=== PATIENT | female | born 1950 | race Caucasian/White ===

== ENCOUNTER → 2022-09-04 | Outpatient (CLI) | payer MEDICARE, BC | END | disposition home or self-care (01) | LOC: Rad HDHVI 14:50 | PROVIDERS: ATTEND Internal Medicine Cardiovascular Disease | DX: I10 Essential (primary) hypertension (principal) | CPT/HCPCS: 93880 ==

== ENCOUNTER → 2022-09-05 | Outpatient (CLI) | payer MEDICARE, BC | END | disposition home or self-care (01) | LOC: Rad HDHVI 08:38 | PROVIDERS: ATTEND Internal Medicine Cardiovascular Disease | DX: I35.1 Nonrheumatic aortic (valve) insufficiency (principal); I10 Essential (primary) hypertension | CPT/HCPCS: 93306 ==

== ENCOUNTER → 2022-09-11 | Outpatient (CLI) | payer MEDICARE, BC ==
[~2022-09-11] VITALS: Ht 160 cm; Wt 106.1 kg
== END | disposition home or self-care (01) ==
LOC: Rad HDHVI 08:00
PROVIDERS: ATTEND Internal Medicine Cardiovascular Disease
DX: I10 Essential (primary) hypertension (principal); E78.5 Hyperlipidemia, unspecified; E78.00 Pure hypercholesterolemia, unspecified; Z82.49 Family history of ischemic heart disease and other diseases of the circulatory system
CPT/HCPCS: 78452; 93017; 96374; A9500

== ENCOUNTER → 2024-08-05 | Outpatient (CLI) | payer BC, MEDICARE, OTHER ==
[~2024-08-05] VITALS: Ht 157.5 cm; Wt 95.3 kg
[~2024-08-05] MED LIST: ADENOSINE 80 MG in GIVE UN-DILUTED 0 ML IV ONE; ADENOSINE 90 MG/30 ML INJ IV ONE; cloNIDine HCL 0.1 MG TAB ONE
== END | disposition home or self-care (01) ==
LOC: Rad HDHVI 09:34
PROVIDERS: ATTEND Internal Medicine Cardiovascular Disease
DX: I11.0 Hypertensive heart disease with heart failure (principal); I50.33 Acute on chronic diastolic (congestive) heart failure; E78.00 Pure hypercholesterolemia, unspecified
CPT/HCPCS: 78452; 93005; 96374; 96375; A9500; J0153

== ENCOUNTER 2025-05-27 23:50 | Inpatient (IN) | payer BC, OTHER ==
[~2025-05-27] VITALS: Ht 157.5 cm; Wt 101.9 kg
--- NOTE | 2025-05-28 00:06 | ED.PDOC ---
General HPI Comments 74 year old female presents to the ED with a chief complaint of LT flank pain onset 2 hours ago. Patient states she began experiencing LT flank pain 2 hours ago as well as nausea, vomiting. Patient experienced similar pain in the past when she had kidney stones. Denies dysuria, hematuria, fevers, chills, diarrhea, constipation, dizziness, headache. No other symptoms or modifying factors present at this time. Chief Complaint: Flank Pain Time Seen by MD: 00:02 Reviewed notes: Medications, Allergies Allergies: Coded Allergies: No Known Drug Allergy (Verified Allergy, Unknown, 09/11/22) Information Source: Patient Mode of Arrival: Ambulatory Severity: Moderate Timing: Hours Duration: Since onset Prehospital treatment: None Onset: Spontaneous Symptoms: Other History of: Kidney stone Location: (R) Flank Modifying factors: None associated signs and symptoms: Nausea, Vomiting, Flank Pain Past Medical History PAST MEDICAL HISTORY: Kidney Stones AUTOMOBILE TECHNICIAN History: No Pertinent AUTOMOBILE TECHNICIAN History Family History Family History: Reviewed,noncontributory to illness, No family hx of Cancer, No family hx of DM, No family hx of Heart shabana, No family hx of HTN, No family hx ofKidney shabana, No family hx of Liver shabana, No family hx of Lung shabana, No family hx of Stroke Social History Smoker: Non-Smoker Alcohol: Denies ETOH Use Drugs: Denies Drug Use Lives In: Home Constitutional: denies: chills, diaphoresis, fatigue, fever, malaise, sweats, weakness, others EENTM: denies: blurred vision, double vision, ear bleeding, ear discharge, ear drainage, ear pain, ear ringing, eye pain, eye redness, hearing loss, mouth pain, mouth swelling, nasal discharge, nose bleeding, nose congestion, nose pain, photophobia, tearing, throat pain, throat swelling, voice changes, others Respiratory: denies: cough, hemoptysis, orthopnea, SOB at rest, shortness of breath, SOB with excertion, stridor, wheezing, others Cardiovascular: denies: chest pain, dizzy spells, diaphoresis, Dyspnea on exertion, edema, irregular heart beat, left arm pain, lightheadedness, palpitations, PND, syncope, others Gastrointestinal: reports: nausea, vomiting; denies: abdomen distended, abdominal pain, blood streaked bowels, constipated, diarrhea, dysphagia, difficulty swallowing, hematemesis, melena, poor appetite, poor fluid intake, rectal bleeding, rectal pain, others Genitourinary: reports: flank pain (LT); denies: abnormal vagina bleeding, burning, dyspareunia, dysuria, frequency, hematuria, incontinence, pain, , vagina discharge, urgency, others Neurological: denies: dizziness, fainting, headache, left sided numbness, left sided weakness, numbness, paresthesia, pre-existing deficit, right sided numbness, right sided weakness, seizure, speech problems, tingling, tremors, weakness, others Musculoskeletal: denies: back pain, gout, joint pain, joint swelling, muscle pain, muscle stiffness, neck pain, others Integumetry: denies: bruises, change in color, change in hair/nails, dryness, laceration, lesions, lumps, rash, wounds, others Allergic/Immunocompromised: denies: Difficulty Healing, Frequent Infections, Hives, Itching, others Hematologic/Lymphatic: denies: anemia, blood clots, easy bleeding, easy bruising, swollen glands, others Endocrine: denies: excessive hunger, excessive sweating, excessive thirst, excessive urination, flushing, intolerance to cold, intolerance to heat, unexplained weight gain, unexplained weight loss, others Psychiatric: denies: anxiety, bipolar disorder, depression, hopeless, panic disorder, schizophrenia, sleepless, suicidal, others All Other Systems: Reviewed and Negative Physical Exam General Appearance: Normal, Other (appears uncomfortable) HEENT: Normal ENT Inspection, Pharynx Normal, TMs Normal Neck: Full Range of Motion, Non-Tender, Normal, Normal Inspection Respiratory: Chest Non-Tender, Lungs Clear, No Accessory Muscle Use, No Respiratory Distress, Normal Breath Sounds Cardiovascular: No Edema, No JVD, No Murmur, No Gallop, Normal Peripheral Pulses, Regular Rate/Rhythm Breast Exam: Deferred Gastrointestinal: No Organomegaly, Other (actively vomiting) Genitalia: Deferred Pelvic: Deferred Rectal: Deferred Extremities: No calf tenderness, Normal capillary refill, Normal inspection, Normal range of motion, Non-tender, No pedal edema Musculoskeletal : Apperance: Normal Neurologic: Alert, finance insurance manager II-XII nml as Tested, No Motor Deficits, Normal Affect, Normal Mood, No Sensory Deficits Cerebellar Function: Normal Reflexes: Normal Skin: Dry, Normal Color, Warm Lymphatic: No Adenopathy Was a procedure done? Was a procedure done?: No Differential Diagnosis Kidney stone (Female): Musculoskeletal pain, Renal failure, Urinary obstruction, Urolithiasis Kidney stone (Male): N/A Penile/Scrotal: N/A Urinary Problem (Male): N/A Urinary Problem (Female): N/A X-Ray, Labs, Meds, VS Vital Signs Date Time Temp Pulse Resp B/P (MAP) Pulse Ox O2 Delivery O2 Flow Rate FiO2 05/28/25 01:00 98.0 66 14 125/71 (89) 97 98.0 05/28/25 00:53 Room Air* 0 21 05/28/25 00:53 97.6 70 20 134/73 (93) 97 97.6 05/28/25 00:50 66 14 125/71 05/28/25 00:23 70 20 134/73 05/28/25 00:01 97.6 70 20 134/73 (93) 97 97.6 Lab Test 05/28/25 02:15 05/28/25 00:11 Range/Units Urine Color Light-yellow Yellow Urine Clarity Clear Clear Urine pH 5.5 5.0-9.0 Urine Specific [place] 1.016 1.001-1.035 Urine Protein Negative Negative Urine Ketones Negative Negative Urine Blood Trace H Negative /uL Urine Nitrite Negative Negative Urine Bilirubin Negative Negative Urine Urobilinogen Normal Negative mg/dL Urine Leukocyte Esterase Negative Negative /uL Urine RBC 3 0 - 4 /hpf Urine Microscopic WBC 3 0-5 /HPF Urine Squamous Epithelial Cells Few <5 /hpf Urine Bacteria None seen None Seen /hpf Urine Granular Casts Few 0 /lpf Urine Glucose Normal Normal mg/dL White Blood Count 13.1 H 4.4-10.8 10^3/uL Red Blood Count 5.33 H 4.0-5.20 10^6/uL Hemoglobin 15.6 12.2-16.2 g/dL Hematocrit 46.4 H 36.0-46.0 % Mean Corpuscular Volume 87.0 80.0-100.0 fL Mean Corpuscular Hemoglobin 29.2 28.0-32.0 pg Mean Corpuscular Hemoglobin Concent 33.6 32.0-36.0 g/dL Red Cell Distribution Width 15.0 H 11.8-14.3 % Platelet Count 249 140-450 10^3/uL Mean Platelet Volume 9.0 6.9-10.8 fL Neutrophils (%) (Auto) 65.3 37.0-80.0 % Lymphocytes (%) (Auto) 24.5 10.0-50.0 % Monocytes (%) (Auto) 8.2 0.0-12.0 % Eosinophils (%) (Auto) 1.1 0.0-7.0 % Basophils (%) (Auto) 0.9 0.0-2.0 % Neutrophils # (Auto) 8.5 1.6-8.6 10 ^3/uL Lymphocytes # (Auto) 3.2 0.4-5.4 10 ^3/uL Monocytes # (Auto) 1.1 0-1.3 10 ^3/uL Eosinophils # (Auto) 0.2 0-0.8 10 ^3/uL Basophils # (Auto) 0.1 0-0.2 10 ^3/uL Nucleated Red Blood Cells 0.1 % Sodium Level 143 136-145 mmol/L Potassium Level 3.6 3.5-5.1 mmol/L Chloride Level 110 H 98-107 mmol/L Carbon Dioxide Level 22 20-31 mmol/L Anion Gap 11 5-15 Blood Urea Nitrogen 25 H 9-23 mg/dL Creatinine 1.29 H 0.550-1.02 mg/dL Glomerular Filtration Rate Calc 44 >90 mL/min BUN/Creatinine Ratio 19.4 10.0-20.0 Serum Glucose 150 H 74-106 mg/dL Calcium Level 9.8 8.7-10.4 mg/dL Current Medications Medications (Trade) Dose Ordered Sig/Malia Route Start Time Stop Time Status Last Admin Sodium Chloride 1,000 ml @ 1,000 mls/hr Q1H ONCE IV 05/28/25 00:15 05/28/25 01:14 DC 05/28/25 00:29 Ondansetron HCl (Zofran) 4 mg ONCE ONCE IV 05/28/25 00:15 05/28/25 00:16 DC 05/28/25 00:24 Ketorolac Tromethamine (Toradol Injection) 15 mg ONCE ONCE IV 05/28/25 00:15 05/28/25 00:16 DC 05/28/25 00:24 Morphine Sulfate 4 mg ONCE ONCE IV 05/28/25 00:15 05/28/25 00:16 SD 05/28/25 00:23 Tamsulosin HCl (Flomax) 0.4 mg ONCE ONCE PO 05/28/25 00:15 05/28/25 00:16 SD 05/28/25 00:24 Time of 1ST Reevaluation: 00:32 Reevaluation 1ST: Unchanged Patient Education/Counseling: Diagnosis, Treatment Family Education/Counseling: No Family Present SEPSIS Sepsis Screen Physician Orders Ct Ab Pel Wo Con-No Oral Or Iv (05/28/25 00:02) Vital Signs Date Time Temp Pulse Resp B/P (MAP) Pulse Ox O2 Delivery O2 Flow Rate FiO2 05/28/25 01:00 98.0 66 14 125/71 (89) 97 98.0 05/28/25 00:53 Room Air* 0 21 05/28/25 00:53 97.6 70 20 134/73 (93) 97 97.6 05/28/25 00:50 66 14 125/71 05/28/25 00:23 70 20 134/73 05/28/25 00:01 97.6 70 20 134/73 (93) 97 97.6 Laboratory Tests Test 05/28/25 00:11 White Blood Count 13.1 10^3/uL (4.4-10.8) H Medications Medications Dose Ordered Sig/Malia Route Start Time Stop Time Status Last Admin Dose Admin Ketorolac Tromethamine 15 mg ONCE ONCE IV 05/28/25 00:15 05/28/25 00:16 SD 05/28/25 00:24 Morphine Sulfate 4 mg ONCE ONCE IV 05/28/25 00:15 05/28/25 00:16 SD 05/28/25 00:23 Ondansetron HCl 4 mg ONCE ONCE IV 05/28/25 00:15 05/28/25 00:16 SD 05/28/25 00:24 Sodium Chloride 1,000 ml @ 1,000 mls/hr Q1H ONCE IV 05/28/25 00:15 05/28/25 01:14 SD 05/28/25 00:29 Tamsulosin HCl 0.4 mg ONCE ONCE PO 05/28/25 00:15 05/28/25 00:16 SD 05/28/25 00:24 Departure 1 Departure Time of Disposition: 02:59 (Patient presented with abdominal pain that was concerning for possible appendicits, gastritis, cholecystitis, colitis, gastroenteritis, sbo, or orther possible surgical emergency. Data: 1. I ordered and reviewed the result of at least 3 labs including a CBC, BMP, and Urinalysis. 2. I independently interpreted the following tests: CT Abdoment and Pelvis is concerning for obstructive uropathy secondary to renal stone .Risk:This patient has a high risk of morbidity due to further diagnostic testing or treatment and may suffer from an acute abdominal process disorder. Workup reveals obstructive uropathy secondary to ureteral colic and patient should be admitted for further workup. and possible expert consultation. ) Impression: Primary Impression: Hydronephrosis of left kidney Additional Impressions: Ureteral colic Left flank pain Disposition: ADMITTED INPATIENT Admit to: Med Surg Condition: Serious Critical Care Note Critical Care Time?: Yes Critical care comment: Intractable abdominal pain Authorized and Performed by: Robinson Mcnulty MD Total critical care time: Approximately 42 minutes Due to a high probability of clinically significant, life threatening deterioration, the patient required my highest level of preparedness to intervene emergently and I personally spent this critical care time directly and personally managing the patient. This critical care time included obtaining a history; examining the patient; pulse oximetry; ordering and review of studies; arranging urgent treatment with development of a management plan; evaluation of patient's response to treatment; frequent reassessment; and, discussions with other providers. This critical care time was performed to assess and manage the high probability of imminent, life-threatening deterioration that could result in multi-organ failure. It was exclusive of separately billable procedures and treating other patients and teaching time. Please see my other sections and the rest of the note for further information on patient assessment and treatment. Stability Stability form required: No I personally scribed for ROBINSON MCNULTY MD ([email or web address]) on 05/28/25 at 00:06. Electronically submitted by Keara Echevarria ([email or web address]). ROBINSON MCNULTY MD May 28, 2025 00:06
[2025-05-28] MEDS: MORPHINE SULFATE 4 MG/ML SYR/VIAL IV ONE (00:23)
[2025-05-28 00:24] LABS: Hematocrit 46.4 % (36.0-46.0); Hemoglobin 15.6 g/dL (12.2-16.2); Mean Corpuscular Hemoglobin 29.2 pg (28.0-32.0); Mean Corpuscular Volume 87.0 fL (80.0-100.0); Nucleated Red Blood Cells % 0.1 %
[2025-05-28] MEDS: ONDANSETRON HCL 4 MG/2 ML VIAL IV ONE (00:24)
[2025-05-28] MEDS: TAMSULOSIN HYDROCHLORIDE 0.4 MG CAP PO ONE (00:24)
[2025-05-28] MEDS: KETOROLAC TROMETH 30 MG/ML 1ML VIAL IV ONE (00:24)
[2025-05-28] MEDS: SODIUM CHLORIDE 0.9% 1,000 ML IV ONE (00:29)
[2025-05-28 00:33] LABS: Potassium 3.6 mmol/L (3.5-5.1); Sodium 143 mmol/L (136-145)
[2025-05-28 00:34] LABS: Anion Gap 11 (5-15); Calcium 9.8 mg/dL (8.7-10.4); Carbon Dioxide 22 mmol/L (20-31)
[2025-05-28 00:39] LABS: BUN/Creatinine Ratio 19.4 (10.0-20.0)
[2025-05-28 00:40] LABS: Blood Urea Nitrogen 25 mg/dL (9-23); Chloride 110 mmol/L (98-107); Glucose 150 mg/dL (74-106)
--- NOTE | 2025-05-28 02:03 | DVH ---
CLINICAL HISTORY: right flank pain TECHNIQUE: CT of the abdomen and pelvis was performed without intravenous contrast. This exam was per formed according to our departmental dose optimization program. Up-to-date CT equipment and radiation dose reduction techniques are utilized as appropriate. CTDI: 20.47 DLP: 1251.87 WID: COMPARISON: None FINDINGS: Lower Thorax: Linear and ground-glass bibasilar opacities which could reflect atelectasis and/or scar ring. Mild cardiomegaly. Small hiatal hernia. Liver and Biliary system: Nodular contour of the liver. No definite hepatic lesion. The gallbladder i s normal caliber. There is no biliary ductal dilatation. Spleen: Unremarkable. Adrenal Glands and Kidneys: Normal adrenal glands. There is an obstructing 6.4 mm calculus in the lef t UPJ causing [id number] left hydronephrosis. Additional nonobstructing left lower pole renal calculus. No right hydronephrosis or nephrolithiasis. Pancreas and Retroperitoneum: Unremarkable. Aorta and Major Vessels: Aortoiliac vessels are normal in caliber with mild calcified atherosclerotic plaque. Bowel, Mesentery and Peritoneal space: Normal caliber small and large bowel. Normal appendix. Mild d istal colonic diverticulosis. No free air or fluid collection. Pelvis: Decompressed urinary bladder. Vaginal cuff is grossly unremarkable. There is no pelvic lympha denopathy. Abdominal wall and Osseous Structures: Small fat containing umbilical hernia. Multilevel lower thorac ic and lumbar spondylosis. There is no destructive osseous lesion. IMPRESSION: Obstructing 6.4 mm calculus in the left UPJ causing [id number] left hydronephrosis. Additional nonobstructing left lower pole renal calculus. Nodular contour of the liver which could be fibrosis or cirrhosis. Correlate with liver enzymes. Mild cardiomegaly. Small hiatal hernia. Mild distal colonic diverticulosis.
[2025-05-28 02:37] LABS: Urine Protein, UAD Negative (Negative)
[2025-05-28] MEDS ORDERED: ACETAMINOPHEN 325 MG TAB PO PRN (03:45)
--- NOTE | 2025-05-28 04:42 | DVHHP2 ---
History of Present Illness Reason for Visit: Flank pain History of Present Illness 74-year-old female presents for evaluation of flank pain. Patient reports a one day history of left-sided flank pain with associated nausea and vomiting. She does have a history of kidney stones. Denies dysuria or hematuria. No nausea or vomiting. Past Medical History Kidney stones Past Surgical History Denies Family History Noncontributory Smoke: No ALCOHOL: none Drugs: None Lives: with Family Review of Systems Review of Systems Review of systems are currently negative otherwise addressed in HPI. Allergies: Coded Allergies: No Known Drug Allergy (Verified Allergy, Unknown, 09/11/22) Medications Current Medications Medications Dose Ordered Sig/Malia Route Start Time Stop Time Status Last Admin Dose Admin Acetaminophen/ Hydrocodone Bitart 1 tab Q4HP PRN PO 05/28/25 03:45 Ondansetron HCl 4 mg Q4HP PRN IV 05/28/25 03:45 Acetaminophen 650 mg Q6HP PRN PO 05/28/25 03:45 Morphine Sulfate 2 mg Q6HPRN PRN IV 05/28/25 03:45 Exam Vital Signs Vital Signs Date Time Temp Pulse Resp B/P (MAP) Pulse Ox O2 Delivery O2 Flow Rate FiO2 05/28/25 03:25 Room Air* 0 21 05/28/25 03:09 98.3 67 15 139/54 (82) 96 98.3 Exam Gen: 74-year-old female in mild distress Skin: Warm, dry, normal color and texture, no rash. HEENT: Normocephalic atraumatic, mucous membranes moist and pink. Neck: Cervical and supraclavicular nodes normal without enlargement, trachea is midline, thyroid gland is normal without masses. Pulmonary: Clear to auscultation and percussion bilaterally. Cardiac: Regular rate and rhythm. No murmur Abdomen: Soft, left CVA tenderness, nondistended, bowel sounds present all 4 quadrants, no guarding, no rigidity, no organomegaly. Extremities: No cyanosis, clubbing, no edema Neuro: Cranial nerves II through XII grossly intact, normal affect and speech, no focal motor deficits. Labs/Xrays ORDERING PHYSICIAN: ROBINSON SOLOMON MD PROCEDURE(s): ABPL - CT AB PEL WO CON-NO ORAL OR IV REASON: right flank pain ORDER NUMBER(s): [id number], ACCESSION NUMBER(s): [id number] CLINICAL HISTORY: right flank pain TECHNIQUE: CT of the abdomen and pelvis was performed without intravenous contrast. This exam was performed according to our departmental dose optimization program. Up-to-date CT equipment and radiation dose reduction techniques are utilized as appropriate. CTDI: 20.47 DLP: 1251.87 WID: COMPARISON: None FINDINGS: Lower Thorax: Linear and ground-glass bibasilar opacities which could reflect atelectasis and/or scarring. Mild cardiomegaly. Small hiatal hernia. Liver and Biliary system: Nodular contour of the liver. No definite hepatic les ion. The gallbladder is normal caliber. There is no biliary ductal dilatation. Spleen: Unremarkable. Adrenal Glands and Kidneys: Normal adrenal glands. There is an obstructing 6.4 mm calculus in the left UPJ causing [id number] left hydronephrosis. Additional nonobstructing left lower pole renal calculus. No right hydronephrosis or nephrolithiasis. Pancreas and Retroperitoneum: Unremarkable. Aorta and Major Vessels: Aortoiliac vessels are normal in caliber with mild calcified atherosclerotic plaque. Bowel, Mesentery and Peritoneal space: Normal caliber small and large bowel. Normal appendix. Mild distal colonic diverticulosis. No free air or fluid collection. Pelvis: Decompressed urinary bladder. Vaginal cuff is grossly unremarkable. There is no pelvic lymphadenopathy. Abdominal wall and Osseous Structures: Small fat containing umbilical hernia. Multilevel lower thoracic and lumbar spondylosis. There is no destructive osseous lesion. IMPRESSION: Obstructing 6.4 mm calculus in the left UPJ causing [id number] left hydronephrosis. Additional nonobstructing left lower pole renal calculus. Nodular contour of the liver which could be fibrosis or cirrhosis. Correlate with liver enzymes. Mild cardiomegaly. Small hiatal hernia. Mild distal colonic diverticulosis. Labs Test 05/28/25 02:15 05/28/25 00:11 Range/Units Urine Color Light-yellow Yellow Urine Clarity Clear Clear Urine pH 5.5 5.0-9.0 Urine Specific [place] 1.016 1.001-1.035 Urine Protein Negative Negative Urine Ketones Negative Negative Urine Blood Trace H Negative /uL Urine Nitrite Negative Negative Urine Bilirubin Negative Negative Urine Urobilinogen Normal Negative mg/dL Urine Leukocyte Esterase Negative Negative /uL Urine RBC 3 0 - 4 /hpf Urine Microscopic WBC 3 0-5 /HPF Urine Squamous Epithelial Cells Few <5 /hpf Urine Bacteria None seen None Seen /hpf Urine Granular Casts Few 0 /lpf Urine Glucose Normal Normal mg/dL White Blood Count 13.1 H 4.4-10.8 10^3/uL Red Blood Count 5.33 H 4.0-5.20 10^6/uL Hemoglobin 15.6 12.2-16.2 g/dL Hematocrit 46.4 H 36.0-46.0 % Mean Corpuscular Volume 87.0 80.0-100.0 fL Mean Corpuscular Hemoglobin 29.2 28.0-32.0 pg Mean Corpuscular Hemoglobin Concent 33.6 32.0-36.0 g/dL Red Cell Distribution Width 15.0 H 11.8-14.3 % Platelet Count 249 140-450 10^3/uL Mean Platelet Volume 9.0 6.9-10.8 fL Neutrophils (%) (Auto) 65.3 37.0-80.0 % Lymphocytes (%) (Auto) 24.5 10.0-50.0 % Monocytes (%) (Auto) 8.2 0.0-12.0 % Eosinophils (%) (Auto) 1.1 0.0-7.0 % Basophils (%) (Auto) 0.9 0.0-2.0 % Neutrophils # (Auto) 8.5 1.6-8.6 10 ^3/uL Lymphocytes # (Auto) 3.2 0.4-5.4 10 ^3/uL Monocytes # (Auto) 1.1 0-1.3 10 ^3/uL Eosinophils # (Auto) 0.2 0-0.8 10 ^3/uL Basophils # (Auto) 0.1 0-0.2 10 ^3/uL Nucleated Red Blood Cells 0.1 % Sodium Level 143 136-145 mmol/L Potassium Level 3.6 3.5-5.1 mmol/L Chloride Level 110 H 98-107 mmol/L Carbon Dioxide Level 22 20-31 mmol/L Anion Gap 11 5-15 Blood Urea Nitrogen 25 H 9-23 mg/dL Creatinine 1.29 H 0.550-1.02 mg/dL Glomerular Filtration Rate Calc 44 >90 mL/min BUN/Creatinine Ratio 19.4 10.0-20.0 Serum Glucose 150 H 74-106 mg/dL Calcium Level 9.8 8.7-10.4 mg/dL Assessment/Plan Assessment/Plan Assessment Renal colic Left hydronephrosis Acute kidney injury Plan Admit the patient to [facility] to the hospitalist Urology consult Pain management Rocephin Continue treatment per orders. Plan discussed with: Patient My Orders Orders - KATINA VERA Procedure Category Date Status Time * Urology Consult CONS 05/28/25 Transmitted 03:37 Basic Metabolic Panel LAB 05/29/25 Verified 04:00 Admit ADMIT 05/28/25 Transmitted 03:37 Renal DIET 05/28/25 Transmitted Standard(2gna,3gk,Lopho) Breakfast Hydrocodone-Acet PHA 05/28/25 In Process 5/325mg Tab ([place] 03:45 Ondansetron Hcl PHA 05/28/25 In Process (Zofran) 03:45 Complete Blood Count LAB 05/29/25 Verified 04:00 Condition: Stable ALLEN 05/28/25 In Process 03:37 Acetaminophen Tablet PHA 05/28/25 In Process (Tylenol Tablet) 03:45 Bedrest With Bathroom ALLEN 05/28/25 In Process Privileg 03:37 Morphine Sulfate PHA 05/28/25 In Process Injection 03:45 Date of Service: May 28, 2025 Billing Provider: KATINA VERA Common Visit Codes: [id number] INP/OBS CARE (MOD) KATINA VERA May 28, 2025 04:42
[2025-05-28 07:43] VITALS: PULSE 67; RESP 15; O2SAT 97
[2025-05-28 08:17] VITALS: PULSE 80; RESP 18; O2SAT 96
--- NOTE | 2025-05-28 10:11 | DVHPNRES ---
Progress Note Date Seen: May 28, 2025 Resident Creating Document: ZAIDA MCCLAIN RESIDENT Medical Necessity Reason Pt with a Central, PICC or Fol: No Subjective Review of Systems 74-year-old female presents for evaluation of flank pain. She reports 1 day history of left-sided flank pain associated with nausea and vomiting. she has a history of kidney stones. She denies dysuria or hematuria. She denies any chest pain,shortness of breath, fever, chills or any other complaints at this time. Past medical history: kidney stone 5 yrs back Past surgical history: none Allergies: No known allergies Smoking: no Alcohol: Occasional Lives with family Review of systems: Patient was seen and examined at bedside. No new complaints were reported. Overnight events were reviewed. Patient reports: Feels better Objective vital signs Vital Sign Date Time Temp Pulse Resp B/P (MAP) Pulse Ox O2 Delivery O2 Flow Rate FiO2 05/28/25 08:00 64 05/28/25 07:43 15 97 Nasal Cannula* 2 28 05/28/25 07:30 97.9 126/44 (71) 97.9 Total Intake and Output 05/27/25 05/27/25 05/28/25 15:00 23:00 07:00 Intake Total 1000 ml Balance 1000 ml medications Current Medications Medications Dose Ordered Sig/Malia Route Start Time Stop Time Status Last Admin Dose Admin Acetaminophen/ Hydrocodone Bitart 1 tab Q4HP PRN PO 05/28/25 03:45 Ondansetron HCl 4 mg Q4HP PRN IV 05/28/25 03:45 Acetaminophen 650 mg Q6HP PRN PO 05/28/25 03:45 Morphine Sulfate 2 mg Q6HPRN PRN IV 05/28/25 03:45 Examination Pt is lying on bed General Appearance: Alert, Oriented X3, Cooperative, Mild distress HEENT: Atraumatic, Mucous membranes moist/pink Respiratory: Clear to auscultation, Normal air movement, No added sounds Cardiovascular: Regular rate, Normal S1, Normal S2, No murmurs Abdominal/ : Active bowel sounds, Soft, no distention, no tenderness Extremities: No edema, Normal pulses, No tenderness/swelling Skin: No Significant rash, except past surgical scars Neuro: Normal speech, sensorimotor deficits none Psych/Mental Status: Mental status NL, Mood NL laboratory and microbiology Laboratory Tests 05/28/25 00:11 Test 05/28/25 00:11 Range/Units Serum Glucose 150 H 74-106 mg/dL Labs and/or images reviewed: Labs reviewed by me, Image(s) reviewed by me Problem List/Assessment/Plan Problem List/Assessment/Plan Assessment and plan # Left nephrolithiasis with [id number] left hydronephrosis. # Acute obstructive uropathy # [id number] Left hydronephrosis # Acute kidney injury likely VMN or Obstructive uropathy CT abdomen and pelvis findings- Obstructing 6.4 mm calculus in the left UPJ causing gxmb-[id number] left hydronephrosis. Additional no obstructing left lower pole renal calculus Ceftriaxone IV fluid Ondansetron Morphine Tamsulosin Consult urology Ordered x-ray KUB, pending # Mild cardiomegaly -Her PCP Dr. Meyer was consulted. # Small hiatal hernia. -Pantoprazole # ? Liver cirrhosis # Mild distal colonic diverticulosis evident on CT abdomen and pelvis Out patient F/U with GI specialist GI prophylaxis: Pantoprazole DVT prophylaxis: Not indicated Diet: Renal Goals of care discussed with the patient for more than 27 minutes: Full code status Case discussed with Dr. Mcleod, patient and RN Plan discussed with: Patient Date of Service: May 28, 2025 Billing Provider: GOLDEN MCLEOD MD Common Visit Codes: [id number] INP/OBS CARE(HIGH) ZAIDA MCCLAIN RESIDENT May 28, 2025 10:11 GOLDEN MCLEOD MD May 29, 2025 07:51
--- NOTE | 2025-05-28 11:08 | DVHINCON2 ---
Date of service: May 28, 2025 Referring Physician hospitalist Reason for Consultation obstructive uropathy History of Present Illness History Source: Patient, RN Notes, MD Notes Exam Limitations: No limitations HPI 74-year-old female presents for evaluation of flank pain. Patient reports a one day history of left-sided flank pain with associated nausea and vomiting. She does have a history of kidney stones. Denies dysuria or hematuria. No nausea or vomiting. Home Meds No Active Prescriptions or Reported Meds Review of Systems Constitutional: No symptom reported Ears, Nose, & Throat: No symptom reported Eyes: No symptom reported Pulmonary/Respiratory: No symptom reported Cardiovascular: No symptom reported Gastrointestinal: No symptom reported Genitourinary: No symptom reported Musculoskeletal: No symptom reported Skin: No symptom reported Psychiatric: No symptom reported Endocrine: No symptom reported Hemotologic/Lymphatic: No symptom reported H&P Exam Vital Signs Vital Signs Date Time Temp Pulse Resp B/P (MAP) Pulse Ox O2 Delivery O2 Flow Rate FiO2 05/28/25 08:00 64 05/28/25 07:43 15 97 Nasal Cannula* 2 28 05/28/25 07:30 97.9 126/44 (71) 97.9 General Appeara: Well developed, Well nourished, Normal Appearance, Obese Neuro/Mental St: Alert, Oriented Appearance: Appropriate appearance, Appropriate insight Eye contact/ Speech: Cooperative, Good eye contact, Normal speech Skin Exam: Normal inspection, Normal color, Warm/dry Labs/Xrays [place] [address] Ph: [phone] DIAGNOSTIC IMAGING Diagnostic Imaging Report : [id number] Signed PATIENT: MICHELLE CAROLINA ACCT: [id number] UNIT: [id number] : 1950 LOC: ER ROOM / BED: / AGE / SEX: 74 / F ADM STATUS: REG ER SERVICE 0002 ORDERING PHYSICIAN: ROBINSON SOLOMON MD PROCEDURE(s): ABPL - CT AB PEL WO CON-NO ORAL OR IV REASON: right flank pain ORDER NUMBER(s): [id number], ACCESSION NUMBER(s): [id number] CLINICAL HISTORY: right flank pain TECHNIQUE: CT of the abdomen and pelvis was performed without intravenous contrast. This exam was performed according to our departmental dose optimization program. Up-to-date CT equipment and radiation dose reduction techniques are utilized as appropriate. CTDI: 20.47 DLP: 1251.87 WID: COMPARISON: None FINDINGS: Lower Thorax: Linear and ground-glass bibasilar opacities which could reflect atelectasis and/or scarring. Mild cardiomegaly. Small hiatal hernia. Liver and Biliary system: Nodular contour of the liver. No definite hepatic lesion. The gallbladder is normal caliber. There is no biliary ductal dilatation. Spleen: Unremarkable. Adrenal Glands and Kidneys: Normal adrenal glands. There is an obstructing 6.4 mm calculus in the left UPJ causing evky-ec-qsibemsj left hydronephrosis. Additional nonobstructing left lower pole renal calculus. No right hydronephrosi s or nephrolithiasis. Pancreas and Retroperitoneum: Unremarkable. Aorta and Major Vessels: Aortoiliac vessels are normal in caliber with mild calcified atherosclerotic plaque. Bowel, Mesentery and Peritoneal space: Normal caliber small and large bowel. Normal appendix. Mild distal colonic diverticulosis. No free air or fluid collection. Pelvis: Decompressed urinary bladder. Vaginal cuff is grossly unremarkable. There is no pelvic lymphadenopathy. Abdominal wall and Osseous Structures: Small fat containing umbilical hernia. Multilevel lower thoracic and lumbar spondylosis. There is no destructive osseous lesion. IMPRESSION: Obstructing 6.4 mm calculus in the left UPJ causing douh-lt-btdbslor left hydronephrosis. Additional nonobstructing left lower pole renal calculus. Nodular contour of the liver which could be fibrosis or cirrhosis. Correlate with liver enzymes. Mild cardiomegaly. Small hiatal hernia. Mild distal colonic diverticulosis. ATED BY: ALEXANDER CONCEPCION MD DICTATED DATE/TIME: 05/28/25199 SIGNED BY: ALEXANDER CONCEPCION MD SIGNED DATE/TIME: 05/28/25199 CC: Labs Test 05/28/25 02:15 05/28/25 00:11 Range/Units Urine Color Light-yellow Yellow Urine Clarity Clear Clear Urine pH 5.5 5.0-9.0 Urine Specific [place] 1.016 1.001-1.035 Urine Protein Negative Negative Urine Ketones Negative Negative Urine Blood Trace H Negative /uL Urine Nitrite Negative Negative Urine Bilirubin Negative Negative Urine Urobilinogen Normal Negative mg/dL Urine Leukocyte Esterase Negative Negative /uL Urine RBC 3 0 - 4 /hpf Urine Microscopic WBC 3 0-5 /HPF Urine Squamous Epithelial Cells Few <5 /hpf Urine Bacteria None seen None Seen /hpf Urine Granular Casts Few 0 /lpf Urine Glucose Normal Normal mg/dL White Blood Count 13.1 H 4.4-10.8 10^3/uL Red Blood Count 5.33 H 4.0-5.20 10^6/uL Hemoglobin 15.6 12.2-16.2 g/dL Hematocrit 46.4 H 36.0-46.0 % Mean Corpuscular Volume 87.0 80.0-100.0 fL Mean Corpuscular Hemoglobin 29.2 28.0-32.0 pg Mean Corpuscular Hemoglobin Concent 33.6 32.0-36.0 g/dL Red Cell Distribution Width 15.0 H 11.8-14.3 % Platelet Count 249 140-450 10^3/uL Mean Platelet Volume 9.0 6.9-10.8 fL Neutrophils (%) (Auto) 65.3 37.0-80.0 % Lymphocytes (%) (Auto) 24.5 10.0-50.0 % Monocytes (%) (Auto) 8.2 0.0-12.0 % Eosinophils (%) (Auto) 1.1 0.0-7.0 % Basophils (%) (Auto) 0.9 0.0-2.0 % Neutrophils # (Auto) 8.5 1.6-8.6 10 ^3/uL Lymphocytes # (Auto) 3.2 0.4-5.4 10 ^3/uL Monocytes # (Auto) 1.1 0-1.3 10 ^3/uL Eosinophils # (Auto) 0.2 0-0.8 10 ^3/uL Basophils # (Auto) 0.1 0-0.2 10 ^3/uL Nucleated Red Blood Cells 0.1 % Sodium Level 143 136-145 mmol/L Potassium Level 3.6 3.5-5.1 mmol/L Chloride Level 110 H 98-107 mmol/L Carbon Dioxide Level 22 20-31 mmol/L Anion Gap 11 5-15 Blood Urea Nitrogen 25 H 9-23 mg/dL Creatinine 1.29 H 0.550-1.02 mg/dL Glomerular Filtration Rate Calc 44 >90 mL/min BUN/Creatinine Ratio 19.4 10.0-20.0 Serum Glucose 150 H 74-106 mg/dL Calcium Level 9.8 8.7-10.4 mg/dL Assessment/Plan Problem List: (1) Ureteral colic (2) Left flank pain (3) Hydronephrosis of left kidney Plan 74 yo female with obstructive left proximal stone and moderate hydro, mildly elevated white count NPO after midnight consent for cysto and left ureteral stent placement tomorrow Plan discussed with: Patient CHANTEL CROCKETT ACCOUNTANT AUDITOR May 28, 2025 11:08
[2025-05-28] MEDS: PANTOPRAZOLE 40 MG TAB PO SCH (11:37)
[2025-05-28] MEDS: cefTRIAXone 1GM/50ML D5W 50 ML IV ONE (11:37)
[2025-05-28] MEDS: SODIUM CHLORIDE 0.9% 500 ML IV ONE (11:46)
[2025-05-28 11:51] LABS: INR 1.02 (0.9-1.15); Partial Thromboplastin Time 25.9 SEC (24.5-34.5); Prothrombin Time 10.8 sec (9.3-11.8)
--- NOTE | 2025-05-28 12:44 | DVHPN2 ---
Progress Note - Dictate Date Seen: May 27, 2025 Medical Necessity Reason Pt with a Central, PICC or Fol: No Subjective FLANK PAIN DYSURIA NOW WITH RECURRENT NEPROLITHIASIS Obstructing 6.4 mm calculus in the left UPJ causing lowa-bz-pcwuapqc left hydronephrosis. Additional nonobstructing left lower pole renal calculus. Nodular contour of the liver which could be fibrosis or cirrhosis. Correlate with liver enzymes. Mild cardiomegaly. Small hiatal hernia. Mild distal colonic diverticulosis. vital signs Vital Sign Date Time Temp Pulse Resp B/P (MAP) Pulse Ox O2 Delivery O2 Flow Rate FiO2 05/28/25 11:30 57 20 120/39 (66) 95 05/28/25 07:43 Nasal Cannula* 2 28 05/28/25 07:30 97.9 97.9 Total Intake and Output 05/27/25 05/27/25 05/28/25 15:00 23:00 07:00 Intake Total 1000 ml Balance 1000 ml medications Current Medications Medications Dose Ordered Sig/Malia Route Start Time Stop Time Status Last Admin Dose Admin Acetaminophen/ Hydrocodone Bitart 1 tab Q4HP PRN PO 05/28/25 03:45 Ondansetron HCl 4 mg Q4HP PRN IV 05/28/25 03:45 Acetaminophen 650 mg Q6HP PRN PO 05/28/25 03:45 Morphine Sulfate 2 mg Q6HPRN PRN IV 05/28/25 03:45 Pantoprazole Sodium 40 mg DAILY@0600 PO 05/28/25 10:30 05/28/25 11:37 40 MG Ceftriaxone Sodium 50 ml @ 100 mls/hr DAILY@09 IV 05/29/25 09:00 Tamsulosin HCl 0.4 mg QPM PO 05/28/25 18:00 laboratory and microbiology Laboratory Tests 05/28/25 00:11 Test 05/28/25 00:11 Range/Units Serum Glucose 150 H 74-106 mg/dL Problem List FLANK PAIN DYSURIA NOW WITH RECURRENT NEPROLITHIASIS Obstructing 6.4 mm calculus in the left UPJ causing hjze-qu-utdvtzdc left hydronephrosis. Additional nonobstructing left lower pole renal calculus. Nodular contour of the liver which could be fibrosis or cirrhosis. Correlate with liver enzymes. Mild cardiomegaly. Small hiatal hernia. Mild distal colonic diverticulosis. Assessment/Plan IVF PAIN MANAGEMENT ABX UROLOGY CONSULTATION Plan discussed with: Patient JAKE CURTIS MD May 28, 2025 12:44
--- NOTE | 2025-05-28 12:47 | DVH ---
Date: 05/28/2025 11:25 AM Examination: XY KUB ABDOMEN SINGLE VIEW History: Pain; stone Comparison: None TECHNIQUE: Frontal views of the abdomen was obtained. FINDINGS: Bowel gas pattern is unremarkable. Moderate stool burden. The lung bases are unremarkable. No acute osseous abnormality identified. IMPRESSION: Nonobstructive bowel gas pattern. Moderate stool burden.
[2025-05-28 13:16] LABS: Alanine Aminotransferase 20.0 U/L (7-40); Albumin 4.4 g/dL (3.2-4.8); Alkaline Phosphatase 108.0 U/L (46-116); Bilirubin, Direct 0.1 mg/dL (<0.3); Bilirubin, Total 0.3 mg/dL (0.2-1.0); Magnesium 2.2 mg/dL (1.6-2.6); Total Protein 7.4 g/dL (5.7-8.2)
[2025-05-28 13:54] LABS: Amphetamine Screen, Urine Neg (NEGATIVE); Barbiturate Scree,Urine Neg (NEGATIVE); Benzodiazephine Screen, Urine Neg (NEGATIVE); Cannabinoid Screen, Urine Neg (NEGATIVE); Cocaine Screen, Urine Neg (NEGATIVE); Opiate Scree,Urine Pos (NEGATIVE); Phencyclidine Screen, Urine Neg (NEGATIVE)
[2025-05-28 14:00] VITALS: BP 124/57; PULSE 57; RESP 16; TEMP 98.1; O2SAT 97
[2025-05-28 16:32] VITALS: BP 130/68; PULSE 57; RESP 16; TEMP 97.6; O2SAT 97
[2025-05-28] MEDS: TAMSULOSIN HYDROCHLORIDE 0.4 MG CAP PO SCH (18:21)
[2025-05-28 20:00] VITALS: PULSE 56; RESP 18
[2025-05-28 21:00] VITALS: BP 119/57; PULSE 65; RESP 17; TEMP 97.6; O2SAT 94
[2025-05-29] VITALS (8 sets, daily range): BP systolic 111–160; BP diastolic 50–81; PULSE 56–82; RESP 17–20; TEMP 97.9–98.6; O2SAT 91–99
[2025-05-29] MEDS: ONDANSETRON HCL 4 MG/2 ML VIAL IV PRN (06:01)
[2025-05-29] MEDS: MORPHINE SULFATE INJ 2 MG/ml SYRG IV PRN (06:04)
[2025-05-29 06:19] LABS: Hematocrit 44.1 % (36.0-46.0); Hemoglobin 14.8 g/dL (12.2-16.2); Mean Corpuscular Hemoglobin 29.4 pg (28.0-32.0); Mean Corpuscular Volume 87.7 fL (80.0-100.0); Nucleated Red Blood Cells % 0.1 %
[2025-05-29 06:20] LABS: Sodium 142 mmol/L (136-145)
[2025-05-29 06:21] LABS: Anion Gap 10 (5-15); Calcium 9.9 mg/dL (8.7-10.4); Carbon Dioxide 24 mmol/L (20-31)
[2025-05-29 06:26] LABS: BUN/Creatinine Ratio 21.7 (10.0-20.0); Glucose 101 mg/dL (74-106)
[2025-05-29 06:28] LABS: Blood Urea Nitrogen 26 mg/dL (9-23); Chloride 108 mmol/L (98-107); Potassium 3.5 mmol/L (3.5-5.1)
[2025-05-29] MEDS: cefTRIAXone 1GM/50ML D5W 50 ML IV SCH (11:47)
--- NOTE | 2025-05-29 16:28 | DVHNC2 ---
Procedure - OPERATIVE REPORT Pre-op. Diagnosis: Flank pain - LEFT Hydronephrosis - LEFT UPJ Stone - LEFT, 7 mm Post-op. Diagnosis: Same as pre-op diagnosis Operation: Cystoscopy with stone manipulation - LEFT Cystoscopy with ureteral stent placement - LEFT Anesthesia: General Indications: Patient presented with symptomatic left UPJ stone and findings of right hydronephrosis. The indications, risks, complications, alternatives and benefits of cystoscopy with ureteral stent placement and possible stone extraction are discussed with patient. All questions were encouraged and answered. Patient is aware of risks/complications including but not limited to infection, bleeding, persistent pain, possible ureteral injury requiring additional surgical management. Patient is also aware of alternatives of this procedure such as conservative management, lithotripsy or lithotomy. He elected to proceed. Details of Procedure: After obtaining the consent, patient is taken to OR suite and underwent general anesthesia. With the patient positioned in the lithotomy, the area of the genitalia prepped and draped in usual sterile fashion. 21 F Cystoscope is used to access the urethra and bladder. No FB, tumors or stones are seen in the bladder. The left ureteric orifice is cannulated with a sensor-tip guidewire and advanced into the left kidney under fluorscopy. Next, a 5x24 PL ureteral stent is placed appropriately under fluoroscopy into the left kidney over the wire under direct visualization. The bladder is decompressed and cystoscope is removed in entirety. Patient is awaken and moved to in stable condition. Specimens: None Complications: None Findings: Notes: Left [address] ureteral stent placed Outpatient ESWL and stent removal JAYLON HIGGINS MD May 29, 2025 16:28
--- NOTE | 2025-05-29 16:34 | DVHPNRES ---
Progress Note Date Seen: May 29, 2025 Resident Creating Document: ZAIDA MCCLAIN Medical Necessity Reason Pt with a Central, PICC or Fol: No Subjective Review of Systems HPI:74-year-old female presents for evaluation of flank pain. She reports 1 day history of left-sided flank pain associated with nausea and vomiting. she has a history of kidney stones. She denies dysuria or hematuria. She denies any chest pain,shortness of breath, fever, chills or any other complaints at this time. Past medical history: kidney stone 5 yrs back Past surgical history: none Allergies: No known allergies Smoking: no Alcohol: Occasional Lives with family Review of systems: The patient was seen and examined at the bedside. Overnight events were reviewed. 05/29/2025 interval events: Patient is scheduled for left-sided cystoscopy and stent placement. She had an episode of severe flank pain rating 10/10, which improved by morphine injection. The patient denies any chest pain shortness of breath fever or any other complaints at this time, Patient reports: Feels better Objective vital signs Vital Sign Date Time Temp Pulse Resp B/P (MAP) Pulse Ox O2 Delivery O2 Flow Rate FiO2 05/29/25 13:00 98.5 75 20 160/81 (107) 99 98.5 05/29/25 08:00 Room Air* 0 21 Total Intake and Output 05/28/25 05/28/25 05/29/25 15:00 23:00 07:00 Intake Total 0 ml 0 ml Balance 0 ml 0 ml medications Current Medications Medications Dose Ordered Sig/Malia Route Start Time Stop Time Status Last Admin Dose Admin Acetaminophen/ Hydrocodone Bitart 1 tab Q4HP PRN PO 05/28/25 03:45 Ondansetron HCl 4 mg Q4HP PRN IV 05/28/25 03:45 05/29/25 11:48 4 MG Acetaminophen 650 mg Q6HP PRN PO 05/28/25 03:45 Morphine Sulfate 2 mg Q6HPRN PRN IV 05/28/25 03:45 05/29/25 11:49 2 MG Pantoprazole Sodium 40 mg DAILY@0600 PO 05/28/25 10:30 05/28/25 11:37 40 MG Ceftriaxone Sodium 50 ml @ 100 mls/hr DAILY@09 IV 05/29/25 09:00 05/29/25 11:47 100 MLS/HR Tamsulosin HCl 0.4 mg QPM PO 05/28/25 18:00 05/28/25 18:21 0.4 MG Examination Pt is lying on bed General Appearance: Alert, Oriented X3, Cooperative, Mild distress HEENT: Atraumatic, Mucous membranes moist/pink Respiratory: Clear to auscultation, Normal air movement, No added sounds Cardiovascular: Regular rate, Normal S1, Normal S2, No murmurs Abdominal/ : Left flank tenderness present, Active bowel sounds, Soft, no distention, no tenderness Extremities: No edema, Normal pulses, No tenderness/swelling Skin: No Significant rash, except past surgical scars Neuro: Normal speech, sensorimotor deficits none Psych/Mental Status: Mental status NL, Mood NL Nurse was there as skills instructor during examination laboratory and microbiology Laboratory Tests 05/29/25 05:49 Test 05/29/25 05:49 Range/Units Serum Glucose 101 74-106 mg/dL Labs and/or images reviewed: Labs reviewed by me, Image(s) reviewed by me Problem List/Assessment/Plan Problem List/Assessment/Plan Assessment and plan # Left nephrolithiasis with zfll-tw-bvnppazr left hydronephrosis. # Acute obstructive uropathy # Apyw-nw-hnxkzrhp Left hydronephrosis # Acute kidney injury likely VMN or Obstructive uropathy CT abdomen and pelvis findings- Obstructing 6.4 mm calculus in the left UPJ causing wmaz-kx-umffatxg left hydronephrosis. Additional no obstructing left lower pole renal calculus Ceftriaxone IV fluid Ondansetron Morphine Tamsulosin Consult urology KUB:Nonobstructive bowel gas pattern. Moderate stool burden. Postoperative day 0 status post LEFT Cystoscopy with stone manipulation & ureteral stent placement and Outpatient ESWL and stent removal TBA # Mild cardiomegaly -Her PCP Dr. Meyer was consulted. # Small hiatal hernia. -Pantoprazole # ? Liver cirrhosis # Mild distal colonic diverticulosis evident on CT abdomen and pelvis Out patient F/U with GI specialist GI prophylaxis: Pantoprazole DVT prophylaxis: Not indicated Diet: Renal Goals of care discussed with the patient for more than 27 minutes: Full code status Case discussed with Dr. Mcleod, patient and RN Plan discussed with: Patient, Other Date of Service: May 29, 2025 Billing Provider: GOLDEN MCLEOD MD Common Visit Codes: 19940-[id number] INP/OBS CARE(HIGH) ZAIDA MCCLAIN RESIDENT May 29, 2025 16:34 GOLDEN MCLEOD MD Jun 03, 2025 18:02
[2025-05-29] MEDS ORDERED: fentaNYL CITRATE 100 MCG/2 ML VL ONE (16:36)
[2025-05-29] MEDS ORDERED: MIDAZOLAM HCL 2MG/2ML 2ml VIAL (1mg/ml) ONE (16:37)
[2025-05-29] MEDS: IOHEXOL 300 MG/ML 100ML BOTTLE IJ ONE (16:50)
[2025-05-29] MEDS ORDERED: ONDANSETRON HCL 4 MG/2 ML VIAL IV ONE (17:30)
[2025-05-29] MEDS ORDERED: hydrALAZINE HCL 20 MG/ML VL IV PRN (17:30)
--- NOTE | 2025-05-29 17:47 | DVH ---
C-ARM FLUOROSCOPY: PROCEDURE: Left ureteral stent FLUOROSCOPY TIME: 13.7 seconds DAP: 5.5 mgy FINDINGS: Spot intraoperative C arm radiographs demonstrating left ureteral stent. IMPRESSION: Please refer to surgical report for detailed findings.
[2025-05-30 05:00] VITALS: BP 101/56; PULSE 65; RESP 17; TEMP 97.7; O2SAT 91
[2025-05-30] MEDS: HYDROcodone-ACET 5/325MG TAB PO PRN (06:33)
[2025-05-30 07:41] LABS: Potassium 3.9 mmol/L (3.5-5.1); Sodium 144 mmol/L (136-145)
[2025-05-30 07:42] LABS: Anion Gap 9 (5-15); Carbon Dioxide 27 mmol/L (20-31)
[2025-05-30 07:43] LABS: Calcium 10.0 mg/dL (8.7-10.4)
[2025-05-30 07:47] LABS: BUN/Creatinine Ratio 17.1 (10.0-20.0); Blood Urea Nitrogen 21 mg/dL (9-23); Glucose 95 mg/dL (74-106)
[2025-05-30 07:50] LABS: Chloride 108 mmol/L (98-107)
[2025-05-30 08:00] VITALS: RESP 18
[2025-05-30 09:32] VITALS: BP 100/46; PULSE 56; RESP 21; TEMP 96.5; O2SAT 92
[2025-05-30 13:19] VITALS: BP 106/55; PULSE 58; RESP 20; TEMP 97.9; O2SAT 95
[2025-05-30 13:34] VITALS: TEMP 36.6
[2025-05-30] MEDS ORDERED: TAMS0.4C39 PO (13:35)
[2025-05-30] MEDS ORDERED: LEVO750T40 PO (13:35)
[2025-05-30] MEDS ORDERED: HYDR-4902 PO (13:46)
--- NOTE | 2025-05-30 14:01 | DVHDSRES ---
Discharge Summary Date of Admission Resident Creating Document: ZAIDA MCCLAIN RESIDENT May 28, 2025 at 03:37 Date of Discharge: May 30, 2025 Admitting Diagnosis Left-sided ureteral nephrolithiasis with hydronephrosis Labs/Diagnostic Data: Laboratory Results Test 05/30/25 06:39 05/29/25 05:49 05/28/25 11:05 05/28/25 02:15 Sodium Level 144 mmol/L (136-145) Potassium Level 3.9 mmol/L (3.5-5.1) Chloride Level 108 mmol/L (98-107) Carbon Dioxide Level 27 mmol/L (20-31) Anion Gap 9 (5-15) Blood Urea Nitrogen 21 mg/dL (9-23) Creatinine 1.23 mg/dL (0.550-1.02) Glomerular Filtration Rate Calc 46 mL/min (>90) BUN/Creatinine Ratio 17.1 (10.0-20.0) Serum Glucose 95 mg/dL (74-106) Calcium Level 10.0 mg/dL (8.7-10.4) White Blood Count 10.3 10^3/uL (4.4-10.8) Red Blood Count 5.03 10^6/uL (4.0-5.20) Hemoglobin 14.8 g/dL (12.2-16.2) Hematocrit 44.1 % (36.0-46.0) Mean Corpuscular Volume 87.7 fL (80.0-100.0) Mean Corpuscular Hemoglobin 29.4 pg (28.0-32.0) Mean Corpuscular Hemoglobin Concent 33.5 g/dL (32.0-36.0) Red Cell Distribution Width 15.1 % (11.8-14.3) Platelet Count 213 10^3/uL (140-450) Mean Platelet Volume 9.1 fL (6.9-10.8) Neutrophils (%) (Auto) 63.5 % (37.0-80.0) Lymphocytes (%) (Auto) 27.0 % (10.0-50.0) Monocytes (%) (Auto) 7.2 % (0.0-12.0) Eosinophils (%) (Auto) 1.8 % (0.0-7.0) Basophils (%) (Auto) 0.5 % (0.0-2.0) Neutrophils # (Auto) 6.5 10 ^3/uL (1.6-8.6) Lymphocytes # (Auto) 2.8 10 ^3/uL (0.4-5.4) Monocytes # (Auto) 0.7 10 ^3/uL (0-1.3) Eosinophils # (Auto) 0.2 10 ^3/uL (0-0.8) Basophils # (Auto) 0.1 10 ^3/uL (0-0.2) Nucleated Red Blood Cells 0.1 % Prothrombin Time 10.8 sec (9.3-11.8) Prothrombin Time INR 1.02 (0.9-1.15) Activated Partial Thromboplast Time 25.9 SEC (24.5-34.5) Urine Color Light-yellow (Yellow) Urine Clarity Clear (Clear) Urine pH 5.5 (5.0-9.0) Urine Specific [place] 1.016 (1.001-1.035) Urine Protein Negative (Negative) Urine Ketones Negative (Negative) Urine Blood Trace /uL (Negative) Urine Nitrite Negative (Negative) Urine Bilirubin Negative (Negative) Urine Urobilinogen Normal mg/dL (Negative) Urine Leukocyte Esterase Negative /uL (Negative) Urine RBC 3 /hpf (0 - 4) Urine Microscopic WBC 3 /HPF (0-5) Urine Squamous Epithelial Cells Few /hpf (<5) Urine Bacteria None seen /hpf (None Seen) Urine Granular Casts Few /lpf (0) Urine Glucose Normal mg/dL (Normal) Urine Opiates Screen Pos (NEGATIVE) Urine Fentanyl Screen Neg (NEGATIVE) Urine Barbiturates Screen Neg (NEGATIVE) Urine Phencyclidine Screen Neg (NEGATIVE) Urine Amphetamines Screen Neg (NEGATIVE) Urine Benzodiazepines Screen Neg (NEGATIVE) Urine Cocaine Screen Neg (NEGATIVE) Urine Cannabinoids Screen Neg (NEGATIVE) Test 05/28/25 00:11 Hemoglobin A1c 5.6 % A1C (<5.7) Magnesium Level 2.2 mg/dL (1.6-2.6) Total Bilirubin 0.3 mg/dL (0.2-1.0) Direct Bilirubin 0.1 mg/dL (<0.3) Aspartate Amino Transferase (AST) 23 U/L (13-40) Alanine Aminotransferase (ALT) 20 U/L (7-40) Alkaline Phosphatase 108 U/L (46-116) B-Type Natriuretic Peptide 170.79 pg/mL (0-100) Total Protein 7.4 g/dL (5.7-8.2) Albumin 4.4 g/dL (3.2-4.8) Vitamin B12 Level 315 pg/mL (211-911) Vitamin D 25-Hydroxy 31.4 ng/mL (30.0-100) Thyroid Stimulating Hormone (TSH) 3.41 uIU/mL (0.55-4.78) Other Laboratory Tests 05/30/25 06:39 05/29/25 05:49 Brief Hx & Hospital Course: Catalina Lopez 76-year-old was admitted with a 1 day history of left-sided flank pain associated nausea and vomiting, she denies dysuria or hematuria. On examination she was in mild distress . Leukocytes were noted.Costovertebral tenderness showed leukocytosis and urinalysis with WBCs and bacteria. CT abdomen pelvis showed 6.4 mm calculus in the left UPJ causing ywvi-im-jcgawspk left hydronephrosis, She was managed with IV fluid, ceftriaxone, ondansetron, morphine, tamsulosin and urology was consulted. She underwent cystoscopy with manipulation and left ureteral stent placement on 05/29/2025 which was tolerated well. Flank pain improved post procedure. No periprocedural complications were noted. She remains hemodynamically stable and afebrile when discharged. Discharge plan was discussed with patient and family, they agreed with the plan. Condition at Discharge: Stable Final Diagnosis/Problems List Left nephrolithiasis with hydronephrosis,status post left ureter stent placement Mild cardiomegaly Small hiatal hernia questionable liver spleen none distal colonic diverticulosis Discharge Disposition: Home Discharge Instruct/Medications Diet: Regular Activity: No Restrictions, As Tolerated Follow Up/Referral: Follow-up with the DC clinic in 1-2 weeks Follow-up with the urologist out patient for stent removal in 2-4 weeks Follow-up with GI in 2 weeks Medications: Per EMR Scheduled Levofloxacin Hemihydrate (Levofloxacin), 1 TAB PO DAILY Tamsulosin Hcl (Tamsulosin Hcl), 1 CAP PO DAILY Scheduled PRN Hydrocodone-Acetaminophen (Hydrocodone Bitartrate/AC 5-325 mg), 1 TAB PO Q4HP PRN Discharge Statement: "Patient was advised to return to the ER or call 911 if any headaches, dizziness, shortness of breath, chest pain, abdominal pain, bleeding, fevers, or worsening of medical condition. Patient was counseled about treatment plan, medications, possible side effects, patientverbalized understanding. All questions were answered to the best of my ability. This discharge took greater then 30 minutes in planning, reviewing documentation, counseling the patient, and discussing with other team members." ASSESSMENT ASSESSMENT Assessment Left nephrolithiasis with hydronephrosis,status post left ureter stent placement Date of Service: May 30, 2025 Billing Provider: GOLDEN MCLEOD MD Common Visit Codes: 12378-PLF/OBS DISCH DAY >30min SARAHIZAIDA [place] RESIDENT May 30, 2025 14:01 GOLDEN MCLEOD MD Jun 03, 2025 18:05
[2025-05-30] MEDS ORDERED: PROPOFOL 10 MG/ML 20 ML IV ONE (15:39)
== END 2025-05-30 15:40 | disposition home or self-care (01) | DRG 661 ==
LOC: ER 23:50 → OVERFLOW 05-28 03:37 → CENTRAL 05-28 15:28
PROVIDERS: ADMIT Internal Medicine; ATTEND Emergency Medicine
PROC: 0T778DZ Dilation of Left Ureter with Intraluminal Device, Via Natural or Artificial Opening Endoscopic (ICD-10-PCS; principal; 2025-05-29 16:26)
DX: N13.2 Hydronephrosis with renal and ureteral calculous obstruction (principal); N17.9 Acute kidney failure, unspecified; K44.9 Diaphragmatic hernia without obstruction or gangrene; K57.30 Diverticulosis of large intestine without perforation or abscess without bleeding; I51.7 Cardiomegaly
CPT/HCPCS: 36415; 74018; 74176; 76000; 80048; 80076; 80307; 81001; 82306; 82607; 83036; 83735; 83880; 84443; 85025; 85610; 85730; 86850; 86900; 86901; 96374; 96375; 99291; A4344; G0378; J1885; J2250; J2405; J2704

== ENCOUNTER → 2025-06-22 | Outpatient (CLI) | payer OTHER ==
[~2025-06-22] MED LIST changes: -ADENOSINE 80 MG in GIVE UN-DILUTED 0 ML IV ONE; -ADENOSINE 90 MG/30 ML INJ IV ONE; +HYDR-4902 PO; +IOHEXOL 350 MG/ML 100ML IJ ONE; +LEVO750T40 PO; +TAMS0.4C39 PO; -cloNIDine HCL 0.1 MG TAB ONE
[2025-06-22 09:20] VITALS: BP 156/67; PULSE 60; RESP 16; O2SAT 96
[2025-06-22 09:39] VITALS: BP 156/50; PULSE 61; RESP 16; O2SAT 96
--- NOTE | 2025-06-22 13:54 | DVH ---
Exam: CT CT AB PEL WITH IV CON ONLY History: ABD PAIN COMPARISON: None Technique: Multidetector spiral CT of the abdomen and pelvis was performed from lung bases to pubic symphysis. Intravenous contrast was administered during this examination. Portal venous imaging was obtained. Axial, coronal and sagittal multiplanar reformats were performed by the technologist on a separate workstation. Radiation Dose : Abdomen/Pelvis: CTDIvol 22 mGy, DLP 1058 mGy*cm. CONTRAST: Type of contrast: Omni 300 Contrast injected: 100 mL Findings: Lung Bases: Atelectasis and scarring in the lung bases. Liver: Diffuse hepatic steatosis. Gallbladder and biliary Tree: Unremarkable Spleen: Unremarkable Pancreas: The pancreas is normal in appearance without focal lesions or abnormal enhancement. Adrenal Glands: Unremarkable Kidneys: Left double-J ureteral stent in place. Mild left hydronephrosis. Calculus in the lower byron e of the left kidney measuring up to 9 mm. Subcentimeter left renal cysts. No right hydronephrosis. Bladder: Unremarkable Bowel: The stomach is grossly normal in appearance. Small bowel and colon are normal in caliber and d istribution. Normal appendix is visualized in the right lower quadrant without findings of appendicit is. Sigmoid diverticulosis. Ascites: Absent Lymphadenopathy: No mesenteric, retroperitoneal or periportal lymphadenopathy. Abdominal wall and Mesentery: Small fat containing periumbilical hernia. Vasculature: The visualized abdominal aorta is normal in size and caliber. Abdominal and pelvic vess els demonstrate normal enhancement. Pelvic Organs: The uterus is surgically absent. Musculoskeletal: Grade 1 anterolisthesis of L4 on L5. Rotoscoliosis with associated multilevel degen erative disease. IMPRESSION: 1. No acute abdominal or pelvic finding. Diffuse hepatic steatosis. Double-J ureteral stent in the le ft kidney. Mild left hydronephrosis. Left lower pole renal calculus measuring up to 9 mm. Subcentim eter left renal cyst. Sigmoid diverticulosis. Small fat containing periumbilical hernia. Radiation optimization: All CT scans at this facility use at least one of these dose optimization olivier hniques: Automated exposure control mA and/or kV adjustment per patient size (includes targeted exams where dose is matched to clinical indication) or iterative reconstruction. HS:Y
== END | disposition home or self-care (01) ==
LOC: Rad HDHVI 09:05
PROVIDERS: ATTEND Internal Medicine Cardiovascular Disease
DX: N28.1 Cyst of kidney, acquired (principal); N13.2 Hydronephrosis with renal and ureteral calculous obstruction; K76.0 Fatty (change of) liver, not elsewhere classified; N13.39 Other hydronephrosis; K57.30 Diverticulosis of large intestine without perforation or abscess without bleeding; K42.9 Umbilical hernia without obstruction or gangrene; J98.11 Atelectasis; J98.4 Other disorders of lung; M43.16 Spondylolisthesis, lumbar region; M41.87 Other forms of scoliosis, lumbosacral region; Z96.0 Presence of urogenital implants; Z90.710 Acquired absence of both cervix and uterus
CPT/HCPCS: 74177; G0463; Q9967

== ENCOUNTER 2025-07-23 08:07 | Outpatient (CLI) | payer OTHER ==
[~2025-07-23 08:07] MED LIST changes: -IOHEXOL 350 MG/ML 100ML IJ ONE
== END 2025-07-23 17:00 | disposition home or self-care (01) ==
LOC: Rad HDHVI 08:07
PROVIDERS: ATTEND Internal Medicine Cardiovascular Disease
DX: Z01.810 Encounter for preprocedural cardiovascular examination (principal); I08.0 Rheumatic disorders of both mitral and aortic valves
CPT/HCPCS: 93306